=== PATIENT | female | born 1965 | race Caucasian/White ===

== ENCOUNTER → 2018-12-03 | Day surgery (SDC) | payer BC, OTHER ==
[~2018-12-03] VITALS: Ht 170.2 cm; Wt 63.5 kg
[~2018-12-03] MED LIST: ASPIRIN325 PO; AUGMENTIN 875875 MG PO; AUGMENTIN125 MG/53 PO; CLIMARA 0.061 PATCH TOP; CLIMARA1 EAC3 TRANSDERM; IBUPROFEN 200200 M1 PO; MOM PO; PERCOCET 5-3251 EACH PO; PERCOCET 7.5-31 EAC1 PO; RANITIDINE 150150 M1 PO; SIMETHICON CHEW80 M1 PO; TOVIAZ8 MG PO
[2018-12-03 14:32] VITALS: BP 139/73
[2018-12-03 17:50] VITALS: BP 139/73
--- NOTE | 2018-12-10 14:30 | O ---
[facility] [place] [address] OPERATIVE REPORT Name: BEVERLY MCCORD Room #: REG [facility].#: [id number] Admission: 12/03/18 Attend Phys: Jason Colin MD Discharge: Date of : 69 Report #: [id number] THIS REPORT FOR: //name// CC: RICCI FOURNIER FAM unknown Jason Colin DATE OF SERVICE: 12/03/2018 PREOPERATIVE DIAGNOSES: 1. Left ankle osteochondral lesion of the talus. 2. Left ankle synovitis. POSTOPERATIVE DIAGNOSES: 1. Left ankle osteochondral lesion of the talus. 2. Left ankle synovitis. PROCEDURE: 1. Left ankle arthroscopic debridement with synovectomy. 2. Left ankle excision of osteochondral lesion. 3. Left ankle microfracture of osteochondral lesion with placement of bone graft along with BioCartilage with platelet-rich plasma. SURGEON: Dr. Jason Colin. MARKETING ANALYTICS SPECIALIST: Flower Stevenson. ANESTHESIA: General. ESTIMATED BLOOD LOSS: Minimal. DRAINS: No drains. TOURNIQUET TIME: 75 minutes. DESCRIPTION OF PROCEDURE: The patient was brought to the operating room where she was placed under general anesthesia. Once under adequate general anesthesia, her left lower extremity was prepped and draped in a sterile manner. The extremity was elevated, exsanguinated and tourniquet placed to 300 mmHg. It had been placed into an arthroscopic thigh support and anteromedial and anterolateral arthroscopic portal was made in the usual fashion. Examination of the joint noted significant synovitis in the infra-syndesmotic region as well as anteriorly. Synovectomy was performed in these areas with the arthroscopic shaver. The osteochondral lesion of the medial talar dome was then identified. This was a large lesion. This was then freed from its base and excised with a grasper. Once removed, it was noted during microfracture to have a deep cystic [facility] [address] [place] [address] OPERATIVE REPORT Name: BEVERLY MCCORD Room #: REG [facility].#: [id number] Admission: 12/03/18 Attend Phys: Jason Colin MD Discharge: Date of : 69 Report #: [id number] character to it. The base of the osteochondral lesion was debrided to good bleeding subchondral bone and debriding the edges of the cyst with a curette to get to good bleeding bone as well. An Acumed trephine was then utilized through a small lateral incision over the tuberosity calcaneus to procure bone graft. This was then placed into a small syringe, which was then utilized through the medial portal to put the bone graft into the defect. This was then tamped into place with a Floydada elevator. Once in place, it did appear to be stable. Meanwhile, the patient's blood was drawn and spun down to platelet-rich plasma. This was then mixed with BioCartilage on the back table. BioCartilage was then placed over the grafted portion of the osteochondral lesion and fixed into place with fibrin glue. This was allowed to set and the procedure was complete. This was a stable lesion at this point. Once complete, the wound was irrigated copiously. The arthroscopic equipment was removed. The extremity was removed from the arthroscopic thigh support and ani were used to close the incisions. Wounds were dressed with Xeroform, 4 x 4s, and sterile soft compressive dressing along with a short leg cast was placed. Tourniquet was let down at 75 minutes. Toes were pink and warm with good capillary refill. There were no complications from the procedure. The patient tolerated the procedure well and went to the recovery room without incident. <ELECTRONICALLY SIGNED> By: Jason Colin MD 12/10/18 [id number] [id number] Jason Colin MD /nt
== END | disposition home or self-care (01) ==
LOC: OR 09:32
DX: M93.272 Osteochondritis dissecans, left ankle and joints of left foot (principal); M65.872 Other synovitis and tenosynovitis, left ankle and foot; Z98.890 Other specified postprocedural states; Z90.710 Acquired absence of both cervix and uterus; Z79.899 Other long term (current) drug therapy; Z90.49 Acquired absence of other specified parts of digestive tract; Z79.82 Long term (current) use of aspirin
CPT/HCPCS: 50010; 50101; 50386; 50951; 51038; 51412; 51437; 51647; 54170; 55430; 56524; 56526; 57091; 57103; 57180; 62110; 62900; 70005

== ENCOUNTER → 2019-01-03 | Outpatient (CLI) | payer BC, OTHER | LOC: ULTRA 15:03 | DX: M79.661 Pain in right lower leg (principal) ==